=== PATIENT | female | born 1965 | race Caucasian/White ===

== ENCOUNTER → 2021-06-13 15:33 | Outpatient (CLI) | payer BC, SELFPAY ==
--- NOTE | ~2021-06-13 | US_ITS ---
EXAMINATION: US thyroid DATE: 06/13/2021 16:10 INDICATION: Disorder of thyroid, unspecified. Thyroid enlargement. TECHNIQUE: Multiple ultrasound images of the thyroid were obtained. COMPARISON: Chest CT 05/08/2009 FINDINGS: The right thyroid lobe measures 4.1 x 1.5 x 2.0 cm. The left thyroid lobe measures 3.8 x 1.5 x 1.3 c m. In the right thyroid lobe, there is a 5 mm solid, hypoechoic, pidlz-zcnf-twgy nodule with ill-def ined margin without echogenic foci (TI-RADS TR4). In the left thyroid lobe, there is a 10 mm solid, h ypoechoic, attrr-zkps-gtoj nodule with smooth margin without echogenic foci (TR4). IMPRESSION: 1. Small thyroid nodules. Thyroid ultrasound is recommended in one year. Reviewed, dictated and finalized at location A. RAL SERVICES TECH
== END ==
PROVIDERS: PCP Physician Assistant; Visit Provider Physician Assistant
DX: E04.2 Nontoxic multinodular goiter (principal)
CPT/HCPCS: 76536

== ENCOUNTER 2022-02-12 14:10 | Outpatient (CLI) | payer BC, SELFPAY ==
--- NOTE | 2022-02-14 12:41 | WPDHOLTEREM ---
Holter/Event Monitor Holter/Event Monitor Date of procedure: 02/12/22 Holter/Event Procedure: 24 Hr Holter Monitor Indications: Palpitations Conclusion: 1. 24 hour holter monitor on 02/12/22. 2. Predominant rhythm is sinus rhythm. HR range 45-152 bpm; average HR 75 bpm. 3. There are 105 premature supraventricular complexes, 5 supraventricular couplets. One episode of supraventricular tachycardia at 133 bpm lasting 7 beats at 07:52. 4. No premature ventricular complexes. No ventricular tachycardia. 5. No sinoatrial or atrioventricular blocks. No significant pauses greater than 2 seconds. 6. Patient reports symptoms of palpitations, dizziness, nausea which demonstrate sinus rhythm, HR range 67-101 bpm.
== END 2022-02-12 14:11 | disposition home or self-care (01) ==
LOC: ANHCARD 14:11
PROVIDERS: PCP Family Medicine; Visit Provider Physician Assistant
DX: R00.2 Palpitations (principal)
CPT/HCPCS: 93225; 93226

== ENCOUNTER 2022-03-12 08:36 | Outpatient (CLI) | payer BC, SELFPAY ==
--- NOTE | 2022-03-12 08:41 | ECHO_ITS ---
Patient Info Name: Jen Todd Age: 56 years : 1965 Gender: Female Ht: 62 in Wt: 135 lbs BSA: 1.65 m2 HR: 56 bpm BP: 121 / 82 mmHg Technical Quality: Good Exam Date: 03/12/2022 9:19 AM Exam Location: [facility] Patient Status: Outpatient Admit Date: 03/12/2022 Staff Ordering Physician: Magalie Hardy MD Optometric Assistant: Asia Burton RDCS Attending Provider: Magalie Hardy MD Referring Physician: Antony LAKHANI; Exam Type: CA echo doppler color flow Study Info Indications I47.1 - Supraventricular tachycardia Complete two-dimensional, color flow and Doppler transthoracic echocardiogram is performed. Summary 1. Complete two-dimensional, color flow and Doppler transthoracic echocardiogram is performed. 2. Left ventricular chamber dimension is normal. 3. Left ventricular systolic function is normal, estimated at 65-70%. 4. The left ventricular diastolic function is normal. 5. E/e' 7 is not elevated. 6. Right ventricular chamber dimension is mildly enlarged. 7. There is mild aortic valve sclerosis. 8. The mitral valve has mildly calcified annulus. Left Ventricle E/e' 7 is not elevated. Left ventricular chamber dimension is normal. Left ventricular systolic function is normal, estimated at 65-70%. The left ventricular diastolic function is normal. Right Ventricle Right ventricular systolic function is normal with normal TAPSE 1.8 cm. Right ventricular chamber dimension is mildly enlarged. Left Atria Left atrial chamber dimension is normal. Right Atria Right atrial chamber dimension is normal. Aortic Valve The aortic valve is trileaflet. There is mild aortic valve sclerosis. There is no aortic valve stenosis. There is no aortic valve regurgitation. Pulmonic Valve There is no pulmonic regurgitation. Mitral Valve The mitral valve has mildly calcified annulus. There is no mitral valve stenosis. There is no mitral valve regurgitation. Tricuspid Valve There is no tricuspid valve regurgitation. Pericardium/Pleural There is no pericardial effusion. Inferior Vena Cava Normal inferior vena cava with >50% collapse upon inspiration consistent with normal right atrial pressure, 5 mmHg. Aorta The aortic root size at the sinus of Valsalva is normal. Left Ventricular Outflow Tract Name Value Normal LVOT 2D LVOT Diameter 2.0 cm LVOT Doppler LVOT Peak Gradient 4 mmHg LVOT Mean Gradient 2 mmHg LVOT VTI 23 cm LVOT VTI/AV VTI Ratio 1.2 LVOT Stroke Volume 72 ml LVOT CO 4.8 l/min LVOT CI 2.9 l/min/m2 Mitral Valve Name Value Normal MV Doppler MV Peak Gradient 2 mm
--- NOTE | 2022-03-12 08:41 | EST_ITS ---
Patient Info Name: Jen Todd Age: 56 years : 1965 Gender: Female Ht: 63 in Wt: 135 lbs BSA: 1.66 m2 HR: 54 bpm BP: 102 / 78 mmHg Heart Rhythm: Sinus Rhythm Technical Quality: Good Exam Date: 03/12/2022 9:52 AM Exam Location: [facility] Patient Status: Outpatient Admit Date: 03/12/2022 Staff Ordering Physician: Magalie Hardy MD Application Designer: Linda Michaels RDCS Attending Provider: Magalie Hardy MD Referring Physician: Antony LAKHANI; Exam Type: CA stress echo Study Info Indications - dyspnea Treadmill exercise stress echocardiogram is performed. Summary 1. 1. Negative Mike exercise stress test for ischemic ST changes by ECG criteria. 2. 2. Reduced functional capacity, achieving 7 METs of workload. 3. 3. Appropriate HR response to exercise. 4. 4. Appropriate HR recovery at 1 minute post exercise. 5. 5. Negative stress echocardiogram for ischemia by wall motion analysis. 6. 6. Patient informed of the above results. Stress Echo Findings Left Ventricle Appropriate increase in LV endocardial thickening with systole. Appropriate augmentation of contractility with systole. No wall motion abnormality. Left Ventricle Normal LV systolic function, no wall motion abnormality. Protocol: Mike Stress ECG Details Stage: REST Duration (min): 1 min : 35 sec Speed (mph): 0.0 Grade (%): 0 HR (bpm): 57 SBP (mmHg): 102 DBP (mmHg): 78 METS: --- Stage: REST Duration (min): 12 min : 44 sec Speed (mph): 0.0 Grade (%): 0 HR (bpm): 58 SBP (mmHg): 102 DBP (mmHg): 78 METS: --- Stage: STAGE 1 Duration (min): 1 min : 0 sec Speed (mph): 1.7 Grade (%): 10 HR (bpm): 104 SBP (mmHg): 102 DBP (mmHg): 78 METS: --- Stage: STAGE 1 Duration (min): 2 min : 0 sec Speed (mph): 1.7 Grade (%): 10 HR (bpm): 120 SBP (mmHg): 102 DBP (mmHg): 78 METS: --- Stage: STAGE 1 Duration (min): 3 min : 0 sec Speed (mph): 1.7 Grade (%): 10 HR (bpm): 121 SBP (mmHg): 146 DBP (mmHg): 82 METS: --- Stage: STAGE 2 Duration (min): 1 min : 0 sec Speed (mph): 2.5 Grade (%): 12 HR (bpm): 132 SBP (mmHg): 146 DBP (mmHg): 82 METS: --- Stage: STAGE 2 Duration (min): 2 min : 0 sec Speed (mph): 2.5 Grade (%): 12 HR (bpm): 147 SBP (mmHg): 146 DBP (mmHg): 82 METS: --- Stage: STAGE 2 Duration (min): 2 min : 1 sec Speed (mph): 0.0 Grade (%): 0 HR (bpm): 147 SBP (mmHg): 146 DBP (mmHg): 82 METS: --- Stage: RECOVERY Duration (min): 0 min : 58 sec Speed (mph): 0.0 Grade (%): 0 HR (bpm): 91 SBP (mmHg): 146 DBP (mmHg): 79 METS: --- Stage: RECOVERY Duration (min): 1 min : 58 sec Speed (mph): 0.0 Grade (%): 0 HR (bpm): 97 SBP (mmHg): 146 DBP (mmHg): 79 METS: --- Stage: RECOVERY Duration (min): 2 min : 58 sec Speed (mph): 0
== END 2022-03-12 08:37 | disposition home or self-care (01) ==
PROVIDERS: PCP Family Medicine; Visit Provider Family Medicine
DX: I47.1 Supraventricular tachycardia (principal); Z86.16 Personal history of COVID-19; Z82.49 Family history of ischemic heart disease and other diseases of the circulatory system; R06.00 Dyspnea, unspecified; I70.0 Atherosclerosis of aorta; I51.9 Heart disease, unspecified
CPT/HCPCS: 93306; 93351

== ENCOUNTER → 2023-05-18 11:39 | Outpatient (CLI) | payer BC, SELFPAY ==
--- NOTE | ~2023-05-18 | XR_ITS ---
Left Knee Technique: AP, lateral, and sunrise views were obtained. Clinical History: Pain Findings: No fracture or dislocation is seen. Osseous alignment is anatomic. Joint spaces are preserv ed without degenerative or erosive change. Soft tissues are unremarkable. No joint effusion is seen. Impression: Unremarkable left knee radiographs. Reviewed, dictated and finalized at location . ROL MANAGER Impression: Unremarkable left knee radiographs.
--- NOTE | ~2023-05-18 | XR_ITS ---
Right Knee Technique: AP, lateral, and sunrise views were obtained. Clinical History: Pain Findings: No fracture or dislocation is seen. Osseous alignment is anatomic. Joint spaces are preserv ed without degenerative or erosive change. Soft tissues are unremarkable. No joint effusion is seen. Impression: Unremarkable right knee radiographs. Reviewed, dictated and finalized at location . TITY MANAGEMENT DEVELOPER Impression: Unremarkable right knee radiographs.
--- NOTE | ~2023-05-18 | XR_ITS ---
Lumbosacral Spine: AP and lateral views Clinical History: Pain Findings: The normal lordotic curve is maintained. The vertebral bodies and posterior elements are i ntact. The intervertebral disc spaces are preserved. There is moderate facet joint degenerative lopez ge of the lower lumbar spine. The sacroiliac joints are normally outlined. Impression: Moderate facet arthropathy at the lower lumbar spine. Reviewed, dictated and finalized at location . ICAL ATTENDANT Impression: Moderate facet arthropathy at the lower lumbar spine.
--- NOTE | ~2023-05-18 | US_ITS ---
EXAMINATION: US thyroid DATE: 05/18/2023 12:38 INDICATION: Nontoxic single thyroid nodule. TECHNIQUE: Multiple ultrasound images of the thyroid were obtained. COMPARISON: Ultrasound 06/13/2021 FINDINGS: The right thyroid lobe measures 4.8 x 2.0 x 1.7 cm. The left thyroid lobe measures 3.7 x 1.4 x 1.5 c m. In the right thyroid lobe, there is a 5 mm solid, hypoechoic, wider than tall nodule with smooth margin without echogenic foci (TI-RADS TR4). In the left thyroid lobe, there is a 9 mm solid, hypoech oic, wider than tall nodule with smooth margin without echogenic foci (TR4). IMPRESSION: 1. Small thyroid nodules, likely not clinically significant. No follow-up is needed. Reviewed, dictated and finalized at location A. OMS OFFICER IMPRESSION: 1. Small thyroid nodules, likely not clinically significant. No follow-up is ne eded.
== END ==
PROVIDERS: PCP Physician Assistant; Visit Provider Physician Assistant
DX: E04.2 Nontoxic multinodular goiter (principal); M25.562 Pain in left knee; M25.561 Pain in right knee; M54.50 Low back pain, unspecified; M47.816 Spondylosis without myelopathy or radiculopathy, lumbar region
CPT/HCPCS: 72100; 73562; 76536

== ENCOUNTER → 2023-05-21 13:14 | Outpatient (CLI) | payer BC, SELFPAY ==
--- NOTE | ~2023-05-21 | CT_ITS ---
CT Scan of the Chest without Contrast: Clinical Indication: Lung cancer screening, personal history of nicotine dependence Technique: Contiguous sections were acquired throughout the chest without intravenous contrast. Dose reduction technique was used on this scan by utilizing automated exposure control and iterative recon struction technique. The dose-length product (DLP) was 72.32 mGy-cm. Findings: There is no evidence of any significant mediastinal, hilar or axillary lymphadenopathy. The mediastin al soft tissues appear normal. There is no evidence of pleural or pericardial effusion. Calcified granulomas are present. Mild to moderate emphysema present. Images through the upper abdomen reveal no abnormalities. Impression: Lung RADS 2: Benign appearance. 12 month follow-up screening CT advised. Reviewed, dictated and finalized at location . COAT MILL OPERATOR Impression: Lung RADS 2: Benign appearance. 12 month follow-up screening CT advised.
== END ==
PROVIDERS: PCP Physician Assistant; Visit Provider Physician Assistant
DX: Z12.2 Encounter for screening for malignant neoplasm of respiratory organs (principal); Z87.891 Personal history of nicotine dependence
CPT/HCPCS: 71271

== ENCOUNTER 2023-07-29 12:31 | Outpatient (CLI) | payer BC, SELFPAY ==
--- NOTE | ~2023-07-29 | XR_ITS ---
XR knee RT 3V 07/29/2023 12:46 INDICATION: Status post recent fall. Knee pain. PROCEDURE: 3 views right knee COMPARISON: 05/18/2023 FINDINGS: Fracture, dislocation or subluxation is not identified. The soft tissues appear within norm al limits. No foreign bodies are identified. IMPRESSION: 1: NO ACUTE BONE OR JOINT ABNORMALITY IDENTIFIED. Reviewed, dictated and finalized at location B. LIANCE OFFICER
== END 2023-07-29 12:32 ==
PROVIDERS: PCP Family Medicine; Visit Provider Family Medicine
DX: M25.561 Pain in right knee (principal); S89.91XA Unspecified injury of right lower leg, initial encounter
CPT/HCPCS: 73562

== ENCOUNTER 2023-08-03 09:33 | Outpatient (CLI) | payer BC, SELFPAY ==
--- NOTE | ~2023-08-03 | MR_ITS ---
EXAMINATION: MR lumbar spine wo con DATE: 08/03/2023 10:06 INDICATION: Disease of spinal cord, unspecified. Low back pain. TECHNIQUE: Magnetic resonance imaging (MRI) of the lumbar spine was performed without intravenous con trast. Sequences included sagittal T2-weighted FSE, sagittal T2-weighted FS FSE, sagittal T1-weighted FSE, and axial T2-weighted FSE. COMPARISON: Lumbar spine radiographs 05/18/2023 FINDINGS: There is 5 degrees levocurvature of lumbar spine. Vertebral body heights are normal. Interv ertebral disc heights are normal. The distal spinal cord signal intensity is normal. The conus medull farrah is at L1. The following disc levels are specifically discussed: L1-L2: The disc does not extend beyond the endplate margin. There is mild right facet joint osteoarth ritis. There is no neural foraminal stenosis. There is no central canal stenosis. L2-L3: There is a left foraminal protrusion. There is mild left facet joint osteoarthritis. There is mild left neural foraminal stenosis. There is no central canal stenosis. L3-L4: The disc is bulging. There is severe right and moderate left facet joint osteoarthritis. There is mild bilateral neural foraminal stenosis. There is no central canal stenosis. L4-L5: The disc is bulging. There is severe bilateral facet joint osteoarthritis. There is mild bilat eral neural foraminal stenosis. There is no central canal stenosis. L5-S1: The disc does not extend beyond the endplate margin. There is severe bilateral facet joint ost eoarthritis. There is mild bilateral neural foraminal stenosis. There is no central canal stenosis. IMPRESSION: 1. Mild lumbar spondylosis. Reviewed, dictated and finalized at location A. ITUTE SCIENTIST IMPRESSION: 1. Mild lumbar spondylosis.
== END 2023-08-03 09:34 ==
LOC: GOSHIMG 09:34
PROVIDERS: PCP Family Medicine; Visit Provider Family Medicine
DX: M43.06 Spondylolysis, lumbar region (principal); G95.9 Disease of spinal cord, unspecified
CPT/HCPCS: 72148

== ENCOUNTER 2024-02-09 01:37 | Day surgery (SDC) | payer BC, SELFPAY ==
[2024-01-21 10:06] VITALS: BMI 27.5
[2024-02-09 07:08] VITALS: BP 144/92; PULSE 92; RESP 18; TEMP 36.1; O2SAT 99
[2024-02-09] MEDS: LACTATED RINGERS 1,000 ML 150 ML IV CONT (07:16)
--- NOTE | 2024-02-09 08:10 | WPDANESEPPF ---
Anes - Initial Pre Proc Eval Procedure: Operation Date: 02/09/24 08:30 Proposed Procedures p Colonoscopy - Fernando Ramirez MD Date/Time: 02/09/24 08:10 Surgeon: Fernando Ramirez MD Pre Op Diagnosis: Personal hx. colon polyps Patient Data Age: 58 Gender: F Height: 1.57 m Weight: 68.3 kg Last Vital Signs Temp 36.1 C L 02/09/24 07:08 Pulse 92 02/09/24 07:08 Resp 18 02/09/24 07:08 BP 144/92 H 02/09/24 07:08 Pulse Ox 99 02/09/24 07:08 O2 Del Method Room Air 02/09/24 07:08 Allergies Allergy/AdvReac Type Severity Reaction Status Date / Time escitalopram [From Lexapro] AdvReac Intermediate Nausea and Verified 02/09/24 07:07 Vomiting psyllium [From Metamucil] AdvReac scratchy Verified 02/09/24 07:07 throat Home Medications Medication Instructions Recorded Confirmed Type albuterol 90 mcg-budesonide 80 2 inh inhalation ONCE 05/18/23 02/09/24 History mcg/actuation HFA aerosol inhaler tramadol 50 mg tablet 50 mg PO Q6H PRN pain #30 tabs 07/29/23 02/09/24 Rx methocarbamol 500 mg tablet 500 mg PO TID PRN spasms #30 tabs 08/07/23 02/09/24 Rx fluticasone fur. 100 mcg-umeclid 1 inh inhalation DAILY #60 ea 09/02/23 02/09/24 Rx 62.5 mcg-vilant 25 mcg inhalat.powder (Trelegy Ellipta) alprazolam 0.25 mg tablet 0.25 mg PO .COMPLEX 1 day #10 tabs 09/29/23 02/09/24 Rx amitriptyline 10 mg tablet 20 mg PO QHS #180 tabs 10/30/23 02/09/24 Rx Patient hx anesthesia problems: none Family hx anesthesia problems: none Results Review: All pre-operative results and documents have been reviewed as part of the pre-operative evaluation. [facility] Past Medical History Medical History Allergies Anxiety Asthma COPD (chronic obstructive pulmonary disease) ct chest 05.21.23 Mild to moderate emphysema present.Calcified granulomas are present GERD (gastroesophageal reflux disease) Headache IBS (irritable bowel syndrome) Nicotine dependence, unspecified, uncomplicated quit 2017 Family History Family History Father Family history of hypercholesterolemia Hypertension Family history of cardiovascular disease Mother Family history of cardiovascular disease Social History Social History Smoking status: Current every day smoker Alcohol intake: current Drinks per week: 8 Alcohol use details: wine and beer Substance use: current Substance use type: marijuana Other substance usage details: smokes Last use: 01/21/24 Current Housing: Decline to Answer Concerned About Future Housing: Decline to Answer Difficulty Paying Gas/Electric Bills: Decline to Answer Difficulty Paying for Meds: Decline to Answer Currently Unemployed: Decline to Answer Education: Decline to Answer Difficulty w/ Childcare or Family Care: Decline to Answer Anes - Eval Final PreProcedure Day of Procedure 02/09/24 08:10 Patient weight: overweight Heart: regular rate and rhythm Lungs: decreased breath sounds Airway: Mallampati scale class II Neurological: alert and oriented Last oral intake: >/= 8 hours ASA classification: III Emergent: no Anesthetic plan: proceed Anesthesia type and monitoring: general GIVS and standard monitoring Results Review: All pre-operative results and documents have been reviewed as part of the pre-operative evaluation. Informed Consent: The patient's anesthetic plan and its attendant risks and benefits were discussed with the patient/family/POA. Questions were solicited and answers provided to the satisfaction of the patient/family/POA.
--- NOTE | 2024-02-09 08:13 | PM.HPGS ---
History of Present Illness History of Present Illness Consent: Risks, benefits, and alternatives have been discussed and questions answered. Patient agrees to proceed with procedure. Chief complaint: Personal hx. colon polyps Narrative: Jen Todd is a 58 year old female here for screening colonoscopy, last one over 10 years ago Review of Systems Review of Systems: All systems reviewed & are unremarkable except as noted in HPI and below PMFSH Past Medical History Medical History (Updated 02/09/24 @ 08:13 by Fernando Ramirez MD) Allergies Anxiety Asthma Colon cancer screening COPD (chronic obstructive pulmonary disease) ct chest 05.21.23 Mild to moderate emphysema present.Calcified granulomas are present GERD (gastroesophageal reflux disease) Headache IBS (irritable bowel syndrome) Nicotine dependence, unspecified, uncomplicated quit 2017 Family History Family History Father Family history of hypercholesterolemia Hypertension Family history of cardiovascular disease Mother Family history of cardiovascular disease Social History Social History Smoking status: Current every day smoker Alcohol intake: current Drinks per week: 8 Alcohol use details: wine and beer Substance use: current Substance use type: marijuana Other substance usage details: smokes Last use: 01/21/24 Current Housing: Decline to Answer Concerned About Future Housing: Decline to Answer Difficulty Paying Gas/Electric Bills: Decline to Answer Difficulty Paying for Meds: Decline to Answer Currently Unemployed: Decline to Answer Education: Decline to Answer Difficulty w/ Childcare or Family Care: Decline to Answer Meds Home Medications and Allergies Home Medications Medication Instructions Recorded Confirmed Type albuterol 90 mcg-budesonide 80 2 inh inhalation ONCE 05/18/23 02/09/24 History mcg/actuation HFA aerosol inhaler tramadol 50 mg tablet 50 mg PO Q6H PRN pain #30 tabs 07/29/23 02/09/24 Rx methocarbamol 500 mg tablet 500 mg PO TID PRN spasms #30 tabs 08/07/23 02/09/24 Rx fluticasone fur. 100 mcg-umeclid 1 inh inhalation DAILY #60 ea 09/02/23 02/09/24 Rx 62.5 mcg-vilant 25 mcg inhalat.powder (Trelegy Ellipta) alprazolam 0.25 mg tablet 0.25 mg PO .COMPLEX 1 day #10 tabs 09/29/23 02/09/24 Rx amitriptyline 10 mg tablet 20 mg PO QHS #180 tabs 10/30/23 02/09/24 Rx Allergies Allergy/AdvReac Type Severity Reaction Status Date / Time escitalopram [From Lexapro] AdvReac Intermediate Nausea and Verified 02/09/24 07:07 Vomiting psyllium [From Metamucil] AdvReac scratchy Verified 02/09/24 07:07 throat Vital Signs Vital Signs - 24 hr 02/09/24 07:08 Temperature 97.0 F L Pulse Rate 92 Respiratory Rate 18 Blood Pressure 144/92 H Pulse Oximetry 99 Oxygen Delivery Room Air Exam Const: General: comfortable and no acute distress HENMT: Face/Nose/Sinus: Normal nares present Eyes: General: appearance normal, both eyes and all related structures Neck: Neck: no JVD Resp: Auscultation: clear to auscultation bilaterally Cardio: Rate: regular rate Rhythm: regular rhythm GI: Inspection: non-distended GI Palp: Yes Soft to palpation Skin: General skin exam: normal color Neuro: General: gait normal Speech: normal speech Extrem: General: normal to inspection Psych: Mental Status: mental status grossly normal Assessment and Plan Assessment and plan (1) Colon cancer screening: Code(s): Z12.11 - Encounter for screening for malignant neoplasm of colon Status: Acute Assessment and Plan: colonoscopy, also h/o loose stools- will get random colon bx
[2024-02-09 08:32] VITALS: BP 112/78; PULSE 74; RESP 21; O2SAT 100
[2024-02-09 08:42] VITALS: BP 135/69; PULSE 68; RESP 20; O2SAT 100
[2024-02-09 08:52] VITALS: BP 133/77; PULSE 57; RESP 21; O2SAT 98
== END 2024-02-09 09:06 | disposition home or self-care (01) ==
PROVIDERS: PCP Family Medicine; Visit Provider Internal Medicine Gastroenterology
PROC: 0DJD8ZZ Inspection of Lower Intestinal Tract, Via Natural or Artificial Opening Endoscopic (ICD-10-PCS; CPT 45378; principal; 2024-02-09 08:30)
DX: Z12.11 Encounter for screening for malignant neoplasm of colon (principal); K57.30 Diverticulosis of large intestine without perforation or abscess without bleeding; K64.8 Other hemorrhoids; J43.9 Emphysema, unspecified; J44.9 Chronic obstructive pulmonary disease, unspecified; K21.9 Gastro-esophageal reflux disease without esophagitis; F41.9 Anxiety disorder, unspecified; Z79.51 Long term (current) use of inhaled steroids; F12.90 Cannabis use, unspecified, uncomplicated
CPT/HCPCS: 45380; 88305; J7120